=== PATIENT | female | born 1965 | race Caucasian/White ===

== ENCOUNTER → 2016-09-09 | Outpatient (CLI) | payer MEDICARE, OTHER | LOC: EMI 13:24 | DX: M25.551 Pain in right hip (principal); R93.7 Abnormal findings on diagnostic imaging of other parts of musculoskeletal system | CPT/HCPCS: 73721 ==

== ENCOUNTER → 2021-02-06 | Outpatient (CLI) | payer MEDICARE, OTHER ==
[~2021-02-06] MED LIST: ALLEGRA ALLERG180 MG PO; ALLEGRA ALLERGY60 MG PO; ANORO ELLIPTA1 EACH INH; ATROVENT HFA12.9 GM PO; BENADRYL 25MG C25 MG PO; BENLYSTA 400 M400 MG SQ; CATAPRES 0.1MG0.1 MG PO; DIGOXIN125 MCG PO; FUROSEMIDE20 MG PO; GLUCOPHAGE XR500 M1 PO; HYDROCODON-ACE1 EAC2 PO; IMURAN TAB 50 M50 MG PO; IPRATROPIU0.2 MG/1 M INH; LIORESAL TAB 1010 MG PO; LIOTHYRONINE S50 MCG PO; LOSARTAN-HCTZ1 EAC1 PO; MONTELUKAST SOD10 MG PO; NITROGLYCERIN0.4 MG SL; PANTOPRAZOLE SO40 MG PO; PILOCARPINE HCL5 MG PO; POTASSIUM CHLO10 MEQ PO; RANITIDINE PO; VITAMIN D31250 MCG PO; XARELTO20 MG PO; [UNRECOGNIZED DRUG - OTHER] PO
== END ==
LOC: US 12:47
DX: M79.662 Pain in left lower leg (principal)
CPT/HCPCS: 93971